=== PATIENT | male | born 1975 | race Caucasian/White ===

== ENCOUNTER 2025-08-01 09:31 | Emergency (ER) | payer OTHER ==
[2025-08-01] MEDS ORDERED: Adenosine 6 mg (2 mL) VIAL ONE (09:45)
[2025-08-01 09:59] LABS: INR-International Normal Ratio 1.0; Prothrombin Time 13.0 sec (12.0-14.7)
[2025-08-01 10:01] LABS: PTT 27.4 sec (22.9-36.1)
[2025-08-01 10:16] LABS: Bicarbonate (HCO3v) 28.9 mmol/L (22.0-28.0); CO2 Tension (PvCO2) 58.5 mmHg (42.0-51.0); Calcium, Ionized 1.28 mmol/L (1.15-1.33); Chloride 106 mmol/L (98-107); Hemoglobin - Calc 17.9 g/dL (14.0-18.0); Potassium 4.4 mmol/L (3.5-5.1); Sodium 143 mmol/L (138-145); T. Carbon Dioxide 30.7 mmol/L (22.0-28.0); vO2 Saturation-calc 58.4 % (60.0-85.0)
[2025-08-01 10:17] LABS: ALT (SGPT) 18 U/L (Less than 45); AST (SGOT) 20 U/L (11-34); Albumin 4.3 g/dL (3.1-4.5); Alkaline Phosphatase 69 U/L (40-110); Anion Gap 19 mmol/L (10-20); BUN (Urea Nitrogen) 17 mg/dL (8.4-25.7); Bilirubin, Total 1.3 mg/dL (0.3-1.2); Calc. Creatinine Clearance 0 mL/min (70-130); Calcium 9.6 mg/dL (7.8-10.44); Carbon Dioxide 24 mmol/L (22-29); Chloride 105 mmol/L (98-107); Globulin 2.8 g/dL (2.4-3.5); Glucose 196 mg/dL (70-105); Magnesium 2.0 mg/dL (1.6-2.6); Potassium 4.7 mmol/L (3.5-5.1); Sodium 143 mmol/L (136-145)
[2025-08-01 11:03] LABS: #Basophils 0.1 thou/uL (0.0-0.2); #Eosinophils 0.2 thou/uL (0.0-0.7); #Lymphocytes 2.1 thou/uL (1.20-3.40); #Monocytes 0.9 thou/uL (0.11-0.59); #Neutrophils 8.0 thou/uL (1.40-6.50); %Basophils 0.6 % (0.0-1.0); %Eosinophils 2.1 % (0.0-10.0); %Lymphocytes 18.2 % (21.0-51.0); %Monocytes 8.1 % (0.0-10.0); %Neutrophils 71.0 % (42.0-75.0); Hematocrit 52.2 % (42.0-52.0); Hemoglobin 17.1 g/dL (14.0-18.0); Mean Corpuscular Hemoglobin 28.6 pg (27.0-31.0); Mean Corpuscular Volume 87.6 fl (78.0-98.0); Platelet Count 296 10x3/uL (130-400); Red Blood Cell (RBC) Count 5.97 mill/uL (4.70-6.10); White Blood Cell (WBC) Count 11.3 10x3/uL (4.8-10.8)
[2025-08-01 11:37] LABS: Troponin I 0.355 ng/mL (< 0.028)
[2025-08-01] MEDS ORDERED: Aspirin Chewable 81 MG TAB ONE (12:18)
[2025-08-01] MEDS ORDERED: Acetaminophen 500 MG TAB ONE (12:18)
[2025-08-01 13:07] LABS: Critical Call Chem Troponin I @EMS.CLF@1306
[2025-08-01 13:08] LABS: Troponin I 0.488 ng/mL (< 0.028)
[2025-08-01] MEDS ORDERED: Enoxaparin 100 MG (1 mL) SYRINGE ONE (13:09)
[2025-08-01 16:45] LABS: Troponin I 0.409 ng/mL (< 0.028)
[2025-08-01 19:42] LABS: Troponin I 0.352 ng/mL (< 0.028)
== END 2025-08-01 19:33 ==
LOC: MADERS 09:31
DX: I21.4 Non-ST elevation (NSTEMI) myocardial infarction (principal); I47.10 Supraventricular tachycardia, unspecified; I49.3 Ventricular premature depolarization; I10 Essential (primary) hypertension; Z79.899 Other long term (current) drug therapy
CPT/HCPCS: 71045; 80053; 82330; 82435; 82803; 83735; 83880; 84132; 84295; 84443; 84484; 85014; 85025; 85610; 85730; 93005; 94760; 96361; 96372; 96374; J0153; J1650; J7030